=== PATIENT | female | born 1990 | race Caucasian/White ===

== ENCOUNTER 2021-12-24 05:05 | Emergency (ER) | payer OTHER, SELFPAY ==
[2021-12-24 05:11] VITALS: PULSE 81; RESP 16; TEMP 36.4; O2SAT 96
--- NOTE | 2021-12-24 05:23 | CRLHL7_ITS ---
For Patients: As a result of the Century Cures Act, medical imaging exams and procedure reports are released immediately into your electronic medical record. You may view this report before your referring provider. If you have questions, please contact your health care provider. Indication: Cough Comparison: Two-view chest March 12, 2013 Technique: PA and lateral views of the chest Findings: There is hyperinflation and central bronchial thickening with demonstration of airspace opacity in the left lung base likely representing developing infiltrate. There is no pneumothorax or pleural effusion. The cardiomediastinal silhouette is within normal limits. The bony thorax is grossly intact. Impression: Hyperinflation and central bronchial thickening with minimal airspace opacity in the left lung base which likely represents minimal developing infiltrate versus atelectasis. Dictated by Fan Hightower MD @ 12/24/2021 6:06:06 AM (Electronically Signed)
--- NOTE | 2021-12-24 05:28 | ED_ITS ---
HPI - Asthma General Time Seen by Provider: 05:27 Date Seen: 12/24/21 Chief Complaint: Cough Stated Complaint: Respiratory issues Time Seen by Provider: 12/24/21 05:11 Source: patient Mode of arrival: ambulatory Limitations: no limitations History of Present Illness HPI Narrative: Patient is a 31-year-old female who has been sick for approximately 1 week now. Been to the clinic and evaluated there for cough. Her COVID swab is negative. She has had no fevers or chills at least the last few days but she feels very short of breath when she is moving around. No history of previous asthma, but I history of previous bronchitis is. She is a smoker of half pack per day for 22 years. Denies any leg swelling, she is not coughing up any blood or any productive sputum. She has had no chest pain associated with this. MD complaint: shortness of breath Severity: moderate Context: recent URI Associated symptoms: productive cough Related Data Current Asthma Therapy: none Home Medications Medication Instructions Recorded Confirmed multivitamin (Multiple Vitamins 1 tab PO QDAY 12/21/21 12/21/21 tablet) Allergies Allergy/AdvReac Type Severity Reaction Status Date / Time sulfamethoxazole Allergy chills, Verified 12/21/21 14:39 [From dizzy, Sulfamethoxazole-Trimethoprim] hives trimethoprim Allergy chills, Verified 12/21/21 14:39 [From dizzy, Sulfamethoxazole-Trimethoprim] hives Review of Systems Status of ROS Reports: 10 or more systems reviewed and unremarkable except as noted in History and below [facility] Medical History Back pain Family history of breast cancer GBS (group B Streptococcus carrier), +RV culture, currently Left otitis media Otitis media of both ears Pelvic pain affecting care, first in first trimester Second degree perineal laceration during delivery Thin meconium stained amniotic fluid Surgical History Delivery normal History of colonoscopy History of ethmoidectomy History of tonsillectomy and adenoidectomy Normal spontaneous vaginal delivery Status post nasal septoplasty Status post primary low transverse section Family History Family/Other Cleft palate Social History Narrative: , 2 kids, smoker Smoking Status: Current every day smoker What tobacco products do you use: cigarettes Smoking packs per day: 0.5 Smoking cigarettes per day: 10.0 Do you use any of these nicotine containing products: None How often do you have a drink containing alcohol: never AUDIT-C Alcohol total score: 0 Non-prescribed substance use: denies use Exam Const: Vital Signs, click to edit/add: Vital Signs - 24 hr 12/24/21 05:11 Temperature 97.6 F Pulse Rate [Right Pulse Oximeter] 81 Respiratory Rate 16 Pulse Oximetry 96 Documenting provider has reviewed patient's vital signs: yes Common normals: no apparent distress General appearance: cooperative, comfortable, well kempt and well developed Nutritional appearance: obese Orientation/consciousness: Yes awake, Yes oriented to person, Yes oriented to place and Yes oriented to time HENMT: Common normals: normocephalic, head/scalp atraumatic, hearing grossly normal bilaterally, external ears normal, EAC's normal, TM's normal bilaterally, external nose normal, nasal mucous membranes and turbinates normal, moist oral mucous membranes, oropharynx normal, dentition normal and gingiva normal Head and scalp: normal to inspection, normocephalic and atraumatic Nose: external nose normal and nasal mucous membranes and turbinates normal External ear: external ears normal External auditory canal: EAC's normal Tympanic membrane: TM's normal bilaterally Mouth: oral and palatal mucosa normal Eye: Common normals: PERRL, EOMs intact bilaterally, conjunctivae normal and no scleral icterus Conjunctiva: conjunctiva(e) normal Pupil: PERRL Neck & C-Spine: Common normals: full ROM, no lymphadenopathy, supple, no meningeal signs, no JVD, thyroid normal and no carotid bruits Thyroid: thyroid normal Lymph: Lymphatic: no lymphadenopathy noted Resp: Common normals: normal respiratory effort, no retractions, no use of accessory muscles and percussion normal Effort & inspection: able to speak in complete sentences and prolonged expiratory phase Auscultation: wheezes and bronchial breath sounds Percussion: percussion normal Cardio: Common normals: no JVD, regular rate, regular rhythm, S1 normal heart sound, S2 normal heart sound and peripheral pulses 2+ throughout Palpation: normal PMI Rate: regular rate Rhythm: regular rhythm Heart sounds: S1 normal and S2 normal Peripheral pulses: pulses 2+ throughout GI: Common normals: Normal to inspection, nondistended, normoactive bowel sounds present, soft to palpation, non-tender, no hepatosplenomegaly, no masses and no bruits Inspection: normal to inspection Palpation: soft and no hepatosplenomegaly : Common normals: no CVA tenderness Bladder/kidney exam: no CVA tenderness Back & Pelvis: Common normals: no CVA tenderness Extremity: Common normals: normal to inspection, full ROM, normal capillary refill, no joint enlargement and no pedal edema Neuro: Sensorium/orientation: awake, oriented to person, oriented to place and oriented to time Meningeal signs: no meningeal signs Psych: Appearance: well kempt Skin: Common normals: no rashes or lesions noted, no wounds, skin turgor normal, no jaundice, no petechiae and no mottling General skin exam: no rashes or lesions noted and turgor normal Course Vital Signs Vital signs: Initial Vital Signs Temperature 97.6 F 12/24/21 05:11 Temperature Source Temporal Artery Scan 12/24/21 05:11 Pulse Rate 81 12/24/21 05:11 Pulse Rhythm 12/24/21 05:11 Respiratory Rate 16 12/24/21 05:11 Pulse Oximetry 96 12/24/21 05:11 Oxygen Delivery Method 12/24/21 05:11 Vital Signs Temperature 97.6 F 12/24/21 05:11 Pulse Rate 81 12/24/21 05:11 Respiratory Rate 16 12/24/21 05:11 Pulse Oximetry 96 12/24/21 05:11 Temperature 97.6 F 12/24/21 05:11 Pulse Rate 81 12/24/21 05:11 Respiratory Rate 16 12/24/21 05:11 Pulse Oximetry 96 12/24/21 05:11 MDM - Asthma MDM Narrative Medical decision making narrative: Life-threatening differential diagnosis includes occluded COPD exacerbation, pulmonary edema, acute coronary syndromes, pulmonary embolism, pneumonia, and pneumothorax. Other differential diagnosis considerations include asthma, bronchitis as well as other etiologies Differential Diagnosis Differential diagnosis: Likely Acute exacerbation, Acute asthmatic bronchitis, PE, Pneumonia, COPD exacerbation, Pulmonary edema systolic, Pulmonary edema dystolic and Pneumothorax Medical Records Attestation: I reviewed the patient's medical records. Lab Data Attestation: I reviewed the patient's lab results. Imaging Data Chest x-ray: Attestation: I have reviewed the pertinent imaging results. My impression: Some streaking in the bases consistent with mild infiltrate left greater than right. Normal cardiac silhouette. No pneumothorax Radiologist's impression: Patient: AREN ERVIN Facility:?[facility] Patient ID:?[id number] Site Patient ID:?[id number]. Site :?[id number] Study:?XRay Chest PA AND LATERAL-12/24/2021 5:53:49 AM Ordering Physician:?Quinn Garcia Final Report: Indication: Cough Comparison: Two-view chest March 12, 2013 Technique: PA and lateral views of the chest Findings: There is hyperinflation and central bronchial thickening with demonstration of airspace opacity in the left lung base likely representing developing infiltrate. There is no pneumothorax or pleural effusion. The cardiomediastinal silhouette is within normal limits. The bony thorax is grossly intact. Impression: Hyperinflation and central bronchial thickening with minimal airspace opacity in the left lung base which likely represents minimal developing infiltrate versus atelectasis. Dictated by Fan Hightower MD @ 12/24/2021 6:06:06 AM (Electronic Signature) Discharge Plan Discharge Clinical Impression: Acute wheezy bronchitis, Tobacco abuse disorder Cough Qualifiers: Cough type: acute Qualified Code(s): R05.1 - Acute cough Patient Disposition: Home, Self-Care Condition: Improved Additional Instructions: Home rest medications as directed, the prednisone will really help this. It will cause you to be a little bit hyper, but significantly improve your breathing over the next couple days. The Zithromax his 4th there is any bacterial cause also in her lungs. Would suggest using in puffer as needed also in consider smoking cessation strongly. Increasing problems breathing, chest pain you should come back and be seen. Activity Level: No Restrictions and Activity as Tolerated Prescriptions: No Action multivitamin [Multiple Vitamins] Tablet 1 tab PO QDAY 0RF Follow Up/Referrals: Nghia Mcneal MD [Primary Care Provider] - Stand Alone Forms: [employer] Info Instructions
[2021-12-24] MEDS: IPRAT-ALBUT 0.5-2.5 MG/3 ML NEB 1 NEB IH (05:37)
--- NOTE | 2021-12-24 06:04 | ED.NURSE ---
Pt states post neb breathing feels easier, pt deep breathing lung congestion sounds improved.
[2021-12-24 06:27] VITALS: BP 132/75; PULSE 65; RESP 18
== END 2021-12-24 06:28 | disposition home or self-care (01) ==
PROVIDERS: Emergency Provider Family Medicine; PCP Family Medicine
DX: J20.9 Acute bronchitis, unspecified (principal); Z72.0 Tobacco use
CPT/HCPCS: 71046; 94640; 99283; 99284

== ENCOUNTER 2023-06-01 12:10 | Emergency (ER) | payer MEDICAID, SELFPAY ==
[2023-06-01 12:12] VITALS: BP 125/85; PULSE 100; RESP 18; TEMP 36.8; O2SAT 99; BMI 34.9
[2023-06-01 12:59] LABS: PCR FLU A Negative PCR FLU A (Negative); PCR FLU B Negative PCR FLU B (Negative); PCR RSV Negative PCR RSV (Negative)
[2023-06-01 13:26] LABS: SARS PCR* Negative SARS-CoV-2 (Negative)
[2023-06-01 15:04] VITALS: BP 118/71; PULSE 95; RESP 18; O2SAT 96
--- NOTE | 2023-06-01 15:07 | ED.GENADULT ---
HPI - General Adult General Date Seen: 06/01/23 Chief complaint: Nausea/Vomiting Stated complaint: Nausea Time Seen by Provider: 06/01/23 14:48 History of Present Illness HPI narrative: 32-year-old generally healthy female who presents to the ER today from home by EMS for evaluation of lightheadedness and dizziness in the setting of nausea, vomiting and diarrhea that began this morning. She has been healthy and well lately. She got up at her normal time this morning about 3:00 a.m. for work. She normally needs to be worked by 5. She went to work in about 6-630 she began to feel ill with nausea and stomach cramps. She subsequently developed an illness with multiple episodes of nonbilious, nonbloody emesis and multiple episodes of nonbloody, non mucousy, but very watery stool. She had some abdominal cramps with it. No severe abdominal pain. No fever. S she was able to go home from work. At home she was had ongoing diarrhea. She began to feel very dizzy and weak. She got lightheaded and her vision started to go dark. She called the ambulance. In route they established an IV and gave her 500 mL of saline. They also gave her 4 mg of IV Zofran. With those interventions she felt tremendously better. Nausea is resolved. Abdominal discomfort resolved. Her dizziness is resolved. He because the ER so busy she was dropped off by the ambulance into the ER lobby. She has been there for over an hour. She has had 2 bottles of water and feels well. She feels much better and back to normal. No ongoing nausea, vomiting, or diarrhea. No known sick exposures. No recent antibiotics. No history of other GI problems. No recent suspicious food intake. Related Data Home Medications Medication Instructions Recorded Confirmed multivitamin (Multiple Vitamins 1 tab PO QDAY 12/21/21 06/01/23 tablet) Previous Rx's Medication Instructions Recorded ondansetron 4 mg disintegrating 4 mg feeding tube Q8H PRN nausea 06/01/23 tablet and vomiting #10 tabs Allergies Allergy/AdvReac Type Severity Reaction Status Date / Time sulfamethoxazole Allergy chills, Verified 06/01/23 12:12 [From dizzy, Sulfamethoxazole-Trimethoprim] hives trimethoprim Allergy chills, Verified 06/01/23 12:12 [From dizzy, Sulfamethoxazole-Trimethoprim] [facility]ives [facility] Medical History Back pain Family history of breast cancer GBS (group B Streptococcus carrier), +RV culture, currently Left otitis media Otitis media of both ears Pelvic pain affecting care, first in first trimester Second degree perineal laceration during delivery Thin meconium stained amniotic fluid Surgical History Delivery normal History of colonoscopy History of ethmoidectomy History of tonsillectomy and adenoidectomy Normal spontaneous vaginal delivery Status post nasal septoplasty Status post primary low transverse section Family History Family/Other Cleft palate Social History Narrative: , 2 kids, smoker Smoking Status: Current every day smoker What tobacco products do you use: cigarettes Smoking packs per day: 0.5 Smoking cigarettes per day: 10.0 Do you use any of these nicotine containing products: None How often do you have a drink containing alcohol: never AUDIT-C Alcohol total score: 0 Non-prescribed substance use: denies use Exam Const: Vital Signs, click to edit/add: Vital Signs - 24 hr 06/01/23 12:12 06/01/23 15:04 Temperature 98.3 F Pulse Rate [Pulse Oximeter] 100 95 Respiratory Rate 18 18 Blood Pressure [Ri ght Upper Arm] 125/85 118/71 Pulse Oximetry 99 96 Oxygen Delivery Me thod Room Air Room Air Course Course ED Course: Constitutional: Appears well-developed and well-nourished. Alert. Conversant. Non toxic. HENT: Head: Atraumatic. Nose: Nose normal. Mouth/Throat: Oral mucosa is clear and moist. no trismus. Pharynx normal. Tonsils symmetric. No tonsillar enlargement, erythema, or exudate. Eyes: Conjunctivae normal. EOM normal. Pupils equal, round, and reactive to light. No scleral icterus. Neck: Normal range of motion. Neck supple. No tracheal deviation present. Cardiovascular: Normal rate, regular rhythm. No gallop. No friction rub. No murmur heard. Symmetric radial artery pulses Pulmonary/Chest: Effort normal. No stridor. No respiratory distress. No wheezes. No rales. No rhonchi . No tenderness. Abdominal: Soft. Bowel sounds normal. No distension. No mass. No tenderness. No rebound. No guarding. Musculoskeletal: RUE: Normal range of motion. No tenderness. No deformity LUE: Normal range of motion. No tenderness. No deformity RLE: Normal range of motion. No edema. No tenderness. No deformity LLE: Normal range of motion. No edema. No tenderness. No deformity Neurological: Alert and oriented to person, place, and time. Normal strength. CN II-VII intact. No sensory deficit. GCS eye subscore is 4. GCS verbal subscore is 5. GCS motor subscore is 6. Normal coordination Skin: Skin is warm and dry. No rash noted. No pallor. Normal capillary refill. Psychiatric: Normal mood. Normal affect. Vital Signs Vital signs: Initial Vital Signs Temperature 98.3 F 06/01/23 12:12 Temperature Source Temporal Artery Scan 06/01/23 12:12 Pulse Rate 100 06/01/23 12:12 Respiratory Rate 18 06/01/23 12:12 Blood Pressure 125/85 06/01/23 12:12 Blood Pressure Mean 98 06/01/23 12:12 Blood Pressure Position Sitting 06/01/23 12:12 Pulse Oximetry 99 06/01/23 12:12 Oxygen Delivery Method Room Air 06/01/23 12:12 Vital Signs Temperature 98.3 F 06/01/23 12:12 Pulse Rate 100 06/01/23 12:12 Respiratory Rate 18 06/01/23 12:12 Blood Pressure 125/85 06/01/23 12:12 Pulse Oximetry 99 06/01/23 12:12 Oxygen Delivery Method Room Air 06/01/23 12:12 Temperature 98.3 F 06/01/23 12:12 Pulse Rate 95 06/01/23 15:04 Respiratory Rate 18 06/01/23 15:04 Blood Pressure 118/71 06/01/23 15:04 Pulse Oximetry 96 06/01/23 15:04 Oxygen Delivery Method Room Air 06/01/23 15:04 Medical Decision Making MDM Narrative Medical decision making narrative: This patient presents with vomiting and diarrhea associated with lightheadedness and weakness. All symptoms began this morning. She received Zofran and fluids per EMS the on the way here and is now feeling better, back to normal.. The patient's symptoms and exam could be consistent with a viral GI infection. There is no high fever, severe pain, bilious or bloody emesis, blood or mucous in the stool, severe abdominal pain, or other concerning signs for a bacterial infection. No recent travel or high risk exposure for baceraial pathogen. No recent antibiotics or risk factors for C. diff. I don't see any evidence for appendicitis, bowel obstruction, abscess, bowel perforation, or other surgical emergency. After meds given by EMS, the patient is feeling better. At this point, the patient is non-septic appearing and well hydrated.I think the patient can be managed as an outpatient. We have discussed oral rehydration strategies. They understand and can perform the needed interventions at home. I have provided a prescription for antiemetics to facilitate oral hydration (Zofran ODT). We have discussed the signs and symptoms of worsening dehydration. They understand the need for immediate reevaluation if any of these symptoms occur. They are also directed to obtain close outpatient follow up within 2-3 days. Lab Data Labs: Lab Results 06/01/23 Range/Units 12:15 SARS-CoV-2 (PCR) Negative SARS-CoV-2 (Negative) Influenza Type A (PCR) Negative PCR FLU A (Negative) Influenza Type B (PCR) Negative PCR FLU B (Negative) RSV (PCR) Negative PCR RSV (Negative) Discharge Plan Discharge Clinical Impression: Nausea, vomiting, and diarrhea Patient Disposition: Home, Self-Care Condition: Stable Instructions: Acute Nausea and Vomiting (DC) Additional Instructions: As we discussed, we suspect your symptoms should be resolved within the next 12-24 hours. Use Zofran if needed to treat nausea. Drink plenty of fluids an add easily digestible solid foods if you can. If you have worsening or uncontrolled nausea and vomiting, lightheadedness or weakness, high fever, bloody or black stools, blood in your vomit, significant abdominal pain, or if you have any other concerns, please come back to your nearest ER right away to be rechecked. Prescriptions: New ondansetron 4 mg tablet,disintegrating 4 mg feeding tube Q8H PRN (Reason: nausea and vomiting) Qty: 10 0RF No Action multivitamin [Multiple Vitamins] Tablet 1 tab PO QDAY Follow Up/Referrals: Nghia Mcneal MD [Primary Care Provider] - Stand Alone Forms: [employer] Info Instructions
== END 2023-06-01 15:14 | disposition home or self-care (01) ==
LOC: ED 15:12
PROVIDERS: Emergency Provider Emergency Medicine; PCP Family Medicine
DX: R11.2 Nausea with vomiting, unspecified (principal); R19.7 Diarrhea, unspecified
CPT/HCPCS: 87631; 95992; 99282; 99283